=== PATIENT | female | born 1970 | race Hispanic/Latino ===

== ENCOUNTER → 2017-05-22 | Outpatient (CLI) | payer OTHER ==
[~2017-05-22] MED LIST: CEPH500T PO; ESCI10TA54 PO; ESOM40CA PO; FISH1CAP50 PO; LORA1TAB3 PO; OLME1TAB9 PO; ROSU10TA PO; TRAZ-185 PO; [UNRECOGNIZED DRUG - OTHER] PO
== END | disposition home or self-care (01) ==
LOC: RAH 12:14
PROVIDERS: ATTEND Internal Medicine
DX: M25.551 Pain in right hip (principal); R59.1 Generalized enlarged lymph nodes
CPT/HCPCS: 70450; 70486; 73502

== ENCOUNTER → 2019-07-14 | Outpatient (CLI) | payer OTHER | END | disposition home or self-care (01) | LOC: OIH 07:56 | PROVIDERS: ATTEND Internal Medicine | DX: M41.85 Other forms of scoliosis, thoracolumbar region (principal) ==

== ENCOUNTER 2022-09-01 05:46 | Day surgery (SDC) | payer OTHER ==
[2022-08-25 12:00] LABS: BASOPHILS # (AUTO) 0.01 K/uL (0.00-0.20); BASOPHILS % (AUTO) 0.2 % (0.0-5.0); EOSINOPHILS % (AUTO) 2.3 % (0.0-8.0); HEMATOCRIT 42.2 % (36-48); IMMATURE GRANULOCYTE ABSOLUTE 0.01 K/uL (0-1); LYMPHOCYTES % (AUTO) 23.3 % (21.0-51.0); MEAN CORPUSCULAR HEMOGLOBIN 30.4 pg (27.0-33.0); MEAN CORPUSCULAR HGB CONC 32.7 g/dL (32.0-36.0); MONOCYTES # (AUTO) 0.3 K/uL (0.1-1.0); MONOCYTES % (AUTO) 6.9 % (3.0-13.0); NEUTROPHILS # (AUTO) 2.9 K/uL (1.8-7.7); NEUTROPHILS % (AUTO) 67.1 % (40.0-77.0); PLATELET COUNT (AUTO) 149 K/uL (130-400); RED BLOOD CELL COUNT(AUTO) 4.54 MIL/uL (4.00-5.50); RED CELL DISTRIBUTION WIDTH 12.3 % (11.0-15.5); WHITE BLOOD COUNT (AUTO) 4.4 K/uL (4.8-10.8)
[2022-08-25 12:12] LABS: POTASSIUM 4.1 mmol/L (3.5-5.1)
[2022-08-25 12:13] LABS: INR 0.93 (0.85-1.15); PROTHROMBIN TIME 10.4 SEC (9.6-11.6)
[2022-08-25 12:14] VITALS: BP 206/98; PULSE 68; RESP 16
[2022-09-01] VITALS (18 sets, daily range): BP systolic 121–146; BP diastolic 62–83; PULSE 65–85; RESP 10–20
[~2022-09-01] VITALS: Ht 167.6 cm; Wt 114.1 kg
[~2022-09-01 05:46] MED LIST changes: -CEPH500T PO; +DICY-20 PO; -ESCI10TA54 PO; -ESOM40CA PO; -FISH1CAP50 PO; +LISI20TA24 PO; -LORA1TAB3 PO; -OLME1TAB9 PO; +OMEP20CA12 PO; -ROSU10TA PO; -TRAZ-185 PO; -[UNRECOGNIZED DRUG - OTHER] PO
[2022-09-01] MEDS ORDERED: CEFAZOLIN SODIUM 1 GM VIAL ONE (06:38)
[2022-09-01] MEDS ORDERED: LACTATED RINGERS 1000ML 1,000 ML IV ONE (06:38)
[2022-09-01] MEDS ORDERED: SUCCINYLCHOLINE 200MG/10ML SYR ONE (06:47)
[2022-09-01] MEDS ORDERED: LIDOCAINE PF 100MG/5ML (2%) SYRINGE 5ML ONE (06:47)
[2022-09-01] MEDS ORDERED: PROPOFOL 10 MG/ML 20ML VIAL IV ONE ×2 (06:48→07:06)
[2022-09-01] MEDS ORDERED: NEOSTIGMINE 5MG/5ML SYR IV ONE (06:48)
[2022-09-01] MEDS ORDERED: DEXAMETHASONE SOD PHOSPHATE 10MG/ML 1ML VIAL ONE (06:48)
[2022-09-01] MEDS ORDERED: MIDAZOLAM HCL 1 MG/ML 2ML VIAL ONE (06:48)
[2022-09-01] MEDS ORDERED: GLYCOPYRROLATE 1 MG/5 ML SYRINGE ONE (06:48)
[2022-09-01] MEDS ORDERED: ROCURONIUM 10MG/1ML SYR 10 MG/ML ML ONE (06:48)
[2022-09-01] MEDS ORDERED: ONDANSETRON 4MG INJ ONE (06:48)
[2022-09-01] MEDS ORDERED: FENTANYL CITRATE PF 50 MCG/1 ML 2ML VIAL ONE ×2 (06:49→08:18)
[2022-09-01] MEDS ORDERED: BUPIVACAINE/PF 0.5% 10ML VIAL ONE (07:34)
[2022-09-01] MEDS ORDERED: CEFAZOLIN SODIUM 3 GM VIAL IVPB ONE (07:43)
[2022-09-01] MEDS ORDERED: IOHEXOL-350 50ML VIAL IV ONE (07:58)
[2022-09-01] MEDS ORDERED: EPHEDRINE SULFATE 50 MG/ML AMPULE ONE (08:51)
[2022-09-01] MEDS ORDERED: MEPERIDINE-PF 25 MG/ML SYG ONE ×2 (09:08→09:19)
== END 2022-09-01 10:25 | disposition home or self-care (01) ==
LOC: DAH 05:46
PROVIDERS: ATTEND Surgery
DX: K81.1 Chronic cholecystitis (principal); Z20.822 Contact with and (suspected) exposure to COVID-19; K82.8 Other specified diseases of gallbladder; I10 Essential (primary) hypertension; E11.9 Type 2 diabetes mellitus without complications; E66.9 Obesity, unspecified; E78.5 Hyperlipidemia, unspecified; Z79.899 Other long term (current) drug therapy; Z79.01 Long term (current) use of anticoagulants; Z98.890 Other specified postprocedural states; Z82.49 Family history of ischemic heart disease and other diseases of the circulatory system; Z83.3 Family history of diabetes mellitus; Z68.41 Body mass index [BMI] 40.0-44.9, adult
CPT/HCPCS: 80048; 84703; 85025; 85610; 85730; 87426; 36415; 47563; 81025; 74300; A6260; A4663; J7030; C1758; J0690 ×2; J7120; J3010 ×2; J0330; J3490 ×3; J1100; J2710; J2001; J2250; J2704 ×2; J2405; J2175 ×2; Q9967; A4649 ×2; A4930 ×2; A4215; A4223; A4222; A4221; A4600